=== PATIENT | male | born 1970 | race Caucasian/White ===

== ENCOUNTER 2019-12-06 15:53 | Inpatient (IN) | payer MEDICAID, SELFPAY ==
[2019-12-06 15:56] VITALS: BP 136/98; PULSE 110; RESP 16; TEMP 36.3; O2SAT 96; BMI 26.4
--- NOTE | 2019-12-06 16:15 | ED.DCSUM_ITS ---
- ER Visit Summary Date of Service: 12/06/19 Chief Complaint: Requesting detox for alcoholism History of Present Illness: The patient is a 49 M history of alcohol abuse states he drinks about 1/5 of vodka a day. He did drink this morning. Denies any hematemesis or melena. Denies any significant complaints. Last detox was in September in [place]. Physical Examination: Middle-aged male no acute distress vital signs stable afebrile. H EENT exam unremarkable. Neck nontender. Lungs clear to auscultation bilaterally. Heart regular rhythm rate about 110 no murmur. Chest wall nontender. Abdomen soft normal bowel sounds no peritoneal signs. Extremities moves all 4. Nontender. Normal range of motion. Back nontender. Neurologically is awake alert with no focal motor deficits. Test Results: CBC with differential CMP Emergency Department Course and Treatment: Screening labs. Hospitalist on page for admission for detox. Treatment Plan: MRI spoken the hospitalist about admission. Disposition: Admission for detox Impression: Hx of alcoholism requesting detox This note was generated with [employer] dictation software. It may contain incorrect words, spelling, and punctuation that were not noted in review of the chart prior to signing ED Disposition - Plan for ED Patient: Referrals: Zeeshan Larry MD [Primary Care Provider] -
[2019-12-06 16:23] VITALS: BMI 26.4
[2019-12-06 16:30] VITALS: BP 136/95; PULSE 83; RESP 16; TEMP 36.8; O2SAT 94
[2019-12-06 16:32] LABS: Absolute Lymphocyte Count 1.32 X10^3/uL (0.83-4.51); Absolute Neutrophil Count 2.7 X10^3/uL (2.0-7.7); Basophil# 0.06 X10^3/uL; Basophil% 1.3 % (0-1); Eosinophil# 0.04 X10^3/uL; Eosinophils% 0.8 % (0-5); Hematocrit 41.5 % (40-54); Hemoglobin 14.6 g/dL (13.0-16.5); Lymphocyte # 1.32 X10^3/ul (4.0); Lymphocyte % 27.9 % (19-41); Mean Corp Hgb Conc 35.2 g/dL (32-36); Mean Corpuscular Hgb 34.1 pg (27.0-32.0); Mean Platelet Vol. 9.6 fl (6.2-12.0); Monocyte# 0.62 X10^3/uL; Monocyte% 13.1 % (0-10); NRBC Flagged by Analyzer 0 % (0-5); Neutrophil # 2.67 X10^3/uL (2.7-7.7); Neutrophil % 56.5 % (47-70); Platelet Count 198 K/mm3 (150-450); RBC Distribution Width CV 12.6 % (11.6-14.6); RBC Distribution Width SD 44.7 fl (35.1-43.9); Red Blood Count 4.28 M/mm3 (4.6-6.2); White Blood Count 4.7 K/mm3 (4.4-11.0)
--- NOTE | 2019-12-06 16:35 | HP.PCM_ITS ---
<Brian Bush - Last Filed: 12/06/19 16:35> Problem List (1) Alcohol withdrawal Status: Acute (2) Hypertension Status: Chronic (3) Nicotine abuse Status: Chronic History of Present Illness Date of Admission: 12/06/19 Chief Complaint: alcohol withdrawal The patient is a 49 year old M with past medical history of nicotine abuse, hypertension, who presented to the emergency room with request for detox. His last drink was about 11 AM today. Patient has been drinking about 1/5 of full- strength vodka daily. He has been an alcoholic since he was a teenager. His last detox was in September of this year-at [facility] in [place], he only made it several days before he started drinking again. He was referred here by the [facility] today, and plans to follow-up with them at discharge. His withdrawal symptoms currently include nausea, upper extremity tremor, numbness and tingling of the toes, and headache. He denies a history of withdrawal seizure or hallucinations. He denies any use of benzodiazepines. He occasionally uses marijuana. He smokes less than 1 pack/day cigarettes. No other drug use. [] Past Medical History Past Medical History (Chronic Problems): Chronic Problems Nicotine abuse (Chronic) Hypertension (Chronic) Back pain (Chronic) Anxiety (Chronic) Dyslipidemia (Chronic) Tobacco use disorder (Chronic) Chest pain (Chronic) Allergies No Known Allergies Allergy (Verified 12/06/19 15:55) Home Medications: Ambulatory Orders Medication Instructions Recorded NK 12/06/19 Surgical History: no surgical history Psychiatric History: Anxiety Lives: With Family Smoking Status: Current every day smoker Tobacco Use: Cigarettes Alcohol: Heavy Drugs: Marijuana - *Family History Paternal History Items: Cancer - colon, Diabetes, Heart Disease - His father had q uadruple bypass surgery in his 50s, Hypertension Maternal History Items: - - denies stroke, cancer, heart disease Review of Systems Constitutional: Denies: Chills, Fever, Weight Change HEENT: Denies: Head Aches, Sinus Congestion, Sinus Drainage Cardiovascular: Denies: Chest Pain, Palpitations Respiratory: Denies: Cough, Shortness of breath at rest, Sputum production Gastrointestinal: Denies: Abdominal Pain, Nausea, Vomiting Genitourinary: Denies: Dysuria Musculoskeletal: Denies: Joint Pain, Joint Tenderness Skin: Denies: Rash, Wounds Neurological: Reports: Headaches, Numbness, Tingling, Tremor. Denies: Focal weakness Psychiatric: Denies: Anxiety, Depression, Homicidal Ideations, Suicidal Ideati ons Hematologic/ Lymphatic: Denies: Easy Bruising, Easy Bleeding VTE Information - Inpt Only VTE Present on Admission: No VTE Mechan Device Prophylaxis: None VTE Pharm Prophylaxis ordered?: No Reason prophylaxis not ordered:: Procedure Not Indicated Patient Problems: Active and Suspected Problems Alcohol withdrawal (Acute) - Physical Exam Vitals/I&O's: Vital Signs Temp Pulse Resp BP Pulse Ox 98.2 F 83 16 136/95 H 94 12/06/19 16:30 12/06/19 16:30 12/06/19 16:30 12/06/19 16:30 12/06/19 16:30 Oxygen Delivery Method Room Air Weight: 195 lb Body Mass Index (BMI) 26.4 General: Alert, Oriented x3, Cooperative HEENT: Atraumatic, PERRLA, EOMI, Normocephalic Neck: Supple, No JVD, Negative Carotid Bruits Lungs: Clear to auscultation, Normal air movement Cardiovascular: Regular rate, No murmurs Abdomen: Bowel Sounds Present, Soft, Non Tender Extremities: No edema, Capillary Refill Less than 3 Seconds Skin: No rashes, No breakdown Musculoskeletal: No Tenderness to Palpation of Joints or Extremities Neurological: Cranial nerves II-XII grossly intact Psych/Mental Status: Normal Affect, Appropriate, Alert and oriented to time, place, person, mood and affect Laboratory Results 12/06/19 16:05: WBC 4.7, RBC 4.28 L, Hgb 14.6, Hct 41.5, MCV 97.0 H, MCH 34.1 H, MCHC 35.2, RDW Std Deviation 44.7 H, RDW Coeff of Vivien 12.6, Plt Count 198, MPV 9.6, Immature Gran % (Auto) 0.400, Neut % (Auto) 56.5, Lymph % (Auto) 27.9, Schleicher % (Auto) 13.1 H, Eos % (Auto) 0.8, Baso % (Auto) 1.3 H, Absolute Neuts (auto) 2.7, Absolute Lymphs (auto) 1.32, Nucleated RBC % 0 12/06/19 16:05: Sodium Pending, Potassium Pending, Chloride Pending, Carbon Dioxide Pending, Anion Gap Pending, BUN Pending, Creatinine Pending, Est GFR (MDRD) Af Amer Pending, Est GFR (MDRD) Non-Af Pending, BUN/Creatinine Ratio Pending, Glucose Pending, Calcium Pending, Total Bilirubin Pending, AST Pending, ALT Pending, Alkaline Phosphatase Pending, Total Protein Pending, Albumin P ending Assessment/Plan All Active Problems Alcohol withdrawal (Acute) 1. Alcoholism with acute withdrawal-last drink 11 AM, drinks approximately 1/5 of full-strength vodka daily. Patient will be started on phenobarbital taper, CIWA protocol, folate and thiamine supplementation. He denies a history of withdrawal seizures. 2. Hypertension- not on home meds. 3. Nicotine abuse-patient will be placed on a nicotine patch DVT prophylaxis: Early ambulation DC planning: pt plans to return home with parents and follow up with [facility] as outpatient. This patient was seen by Brian Bush PA-C under the supervision of Doctor Felix. <Ashkan Washington - Last Filed: 12/06/19 16:46> Problem List (1) Alcohol withdrawal Status: Acute (2) Nicotine abuse Status: Chronic (3) Anxiety Status: Chronic (4) Back pain Status: Chronic (5) Chest pain Status: Chronic (6) Dyslipidemia Status: Chronic (7) Hypertension Status: Chronic (8) Tobacco use disorder Status: Chronic History of Present Illness The patient is a 49 year old M who has been drinking heavily for roughly 35 years. Recently his consumption has been about 750 mL's of vodka daily. Last drink was 11 AM today. Patient was in contact with the [facility] addiction program who advised the patient to come to the emergency room for admission for alcohol withdrawal. Since his last drink, patient's been having tremors in his upper extremities. Patient has tried quitting before and was able to do so for short period of time. He states that when he did quit previously, he did not go through delirium tremens. [] Past Medical History Allergies No Known Allergies Allergy (Verified 12/06/19 15:55) Surgical History: no surgical history Psychiatric History: Anxiety Lives: With Family Smoking Status: Current every day smoker Tobacco Use: Cigarettes Alcohol: Heavy Drugs: Marijuana - *Family History Paternal History Items: Cancer, Diabetes, Heart Disease, Hypertension Maternal History Items: - Review of Systems Constitutional: Denies: Chills, Fever, Weight Change HEENT: Denies: Head Aches, Sinus Congestion, Sinus Drainage Cardiovascular: Denies: Chest Pain, Palpitations Respiratory: Denies: Cough, Shortness of breath at rest, Sputum production Gastrointestinal: Denies: Abdominal Pain, Nausea, Vomiting Genitourinary: Denies: Dysuria Skin: Denies: Rash, Wounds Neurological: Reports: Headaches, Numbness, Tingling, Tremor. Denies: Focal we akness Psychiatric: Denies: Anxiety, Depression, Homicidal Ideations, Suicidal Ideations Hematologic/ Lymphatic: Denies: Easy Bruising, Easy Bleeding VTE Information - Inpt Only VTE Present on Admission: No VTE Mechan Device Prophylaxis: None VTE Pharm Prophylaxis ordered?: No Reason prophylaxis not ordered:: Procedure Not Indicated - Physical Exam Vitals/I&O's: Vital Signs Temp Pulse Resp BP Pulse Ox 36.8 C 86 16 136/92 H 94 12/06/19 16:37 12/06/19 16:37 12/06/19 16:37 12/06/19 16:37 12/06/19 16:37 Oxygen Delivery Method Room Air Weight: 88.451 kg Body Mass Index (BMI) 26.4 General: Alert, Oriented x3, Cooperative HEENT: Atraumatic, PERRLA, EOMI, Normocephalic Neck: Supple, No JVD, Negative Carotid Bruits Lungs: Clear to auscultation, Normal air movement Cardiovascular: Regular rate, No murmurs Abdomen: Bowel Sounds Present, Soft, Non Tender Extremities: No edema, No Calf Tenderness Skin: No rashes, No breakdown Musculoskeletal: No Tenderness to Palpation of Joints or Extremities Psych/Mental Status: Normal Affect, Appropriate Laboratory Results 12/06/19 16:05: WBC 4.7, RBC 4.28 L, Hgb 14.6, Hct 41.5, MCV 97.0 H, MCH 34.1 H, MCHC 35.2, RDW Std Deviation 44.7 H, RDW Coeff of Vivien 12.6, Plt Count 198, MPV 9.6, Immature Gran % (Auto) 0.400, Neut % (Auto) 56.5, Lymph % (Auto) 27.9, Schleicher % (Auto) 13.1 H, Eos % (Auto) 0.8, Baso % (Auto) 1.3 H, Absolute Neuts (auto) 2.7, Absolute Lymphs (auto) 1.32, Nucleated RBC % 0 12/06/19 16:05: Sodium Pending, Potassium Pending, Chloride Pending, Carbon Dioxide Pending, Anion Gap Pending, BUN Pending, Creatinine Pending, Est GFR (MDRD) Af Amer Pending, Est GFR (MDRD) Non-Af Pending, BUN/Creatinine Ratio Pending, Glucose Pending, Calcium Pending, Total Bilirubin Pending, AST Pending, ALT Pending, Alkaline Phosphatase Pending, Total Protein Pending, Albumin Pending Assessment/Plan Patient seen and examined independently. Data reviewed. I agree with the above note by the physician surgical services assistant. 1. Acute alcohol withdrawal: * Patient voluntarily seek treatment for alcohol withdrawal. * Last drink was at 11 AM today. * Patient will be on a phenobarbital taper plus thiamine folate. Additionally, patient will have other medications to help him with other somatic complaints that may be associated with his withdrawal. * Did advise the patient that given the large quantities of alcohol that he does consume that he is at high risk for going through delirium tremens. Informed him that if he does start to go through that that we would need to have a higher level of care, such as in the ICU, and also a change to his medications. 2. Tobacco abuse: Nicotine patch. 3. VTE prophylaxis: Low risk. 4. Advanced care planning: Discussed with patient. Patient wished to be full CODE STATUS. Inpatient E&M: 88548 Init Hosp L2
[2019-12-06 16:37] VITALS: BP 136/92; PULSE 86; RESP 16; TEMP 36.8; O2SAT 94
--- NOTE | 2019-12-06 16:41 | CM.ED ---
Social Work Consult: Substance Abuse Informant: Self-Referral Met with patient in room. Introduced self and social work nurse role. Patient agreeable to speak with this social work nurse. Patient states to be seeking medical management of withdrawal symptoms. Patient states substance of choice is Alcohol. Patient states to have last drank this morning. Patient reports a 5th of Vodka daily. Patient states to have last been through detox in September 2019. Patient denies any mental health history. Patient denies any suicidal thoughts/plans/intents. Patient states to feel safe at home and to have support in the community. Patient verbally agreeing to [facility] contract. Support provided. Telephone call to Antolin Bolanos. Antolin updated on patient admission. Narda Valle FIRST ASSIST, [place]
[2019-12-06 16:47] LABS: ALB/GLOB Ratio 0.8 RATIO (0.9-2.4); AST(SGOT) 319 U/L (15-37); Alanine Aminotransfer ALT/SGPT 129 U/L (16-61); Albumin, Serum 3.4 g/dL (3.2-5.0); Alkaline Phosphatase 127 U/L (45-117); Anion Gap 8 (5-15); BUN 14 mg/dL (7-18); BUN/Creat Ratio 16.9 RATIO (10-20); Calcium,Total 8.4 mg/dL (8.5-10.1); Chloride 105 mmol/L (98-107); Creatinine, Serum 0.83 mg/dL (0.70-1.30); EST Glomerular Filtration Rate 105 mL/min (>60); Est Glom Filt Rate - Afr Amer 127 mL/min (>60); Estimated Creatinine Clearance 116.87 ml/min; Globulin 4.1 g/dL (2.2-4.2); Glucose 129 mg/dL (74-106); Potassium 3.7 mmol/L (3.5-5.1); Protein, Total 7.5 g/dL (6.4-8.2); Sodium Level 141 mmol/L (136-145)
[2019-12-06 17:29] VITALS: BP 133/91; PULSE 82; RESP 16; TEMP 37; O2SAT 98
[2019-12-06 17:30] VITALS: BMI 26.2
--- NOTE | 2019-12-06 17:41 | NURSING ---
states any falling has been due to intoxication with alcohol
[2019-12-06] MEDS: Acetaminophen 325 MG Tablet 650 MG PO (18:02)
[2019-12-06] MEDS: Gabapentin 300 MG Capsule PO (18:02)
[2019-12-06] MEDS: Phenobarbital 32.4 MG Tablet 64.8 MG PO ×2 (18:02→22:18)
[2019-12-06] MEDS: Dicyclomine 10 MG Capsule 20 MG PO (18:02)
[2019-12-06] MEDS: Ondansetron 8 MG Tablet PO (20:41)
[2019-12-06] MEDS: hydrOXYzine PAM 25 MG Capsule 50 MG PO (20:41)
[2019-12-06 20:46] VITALS: BP 153/98; PULSE 99; RESP 18; TEMP 37.3; O2SAT 96
[2019-12-06] MEDS: traZODone 100 MG Tablet PO (22:18)
[2019-12-06] MEDS: 0.9% Saline Lock 10 ML Syringe IV (22:20)
[2019-12-07] MEDS: Phenobarbital 32.4 MG Tablet 64.8 MG PO ×6 (02:46→20:58)
[2019-12-07] MEDS: hydrOXYzine PAM 25 MG Capsule 50 MG PO (02:46)
[2019-12-07] MEDS: Dicyclomine 10 MG Capsule 20 MG PO (02:47)
[2019-12-07] MEDS: Acetaminophen 325 MG Tablet 650 MG PO ×2 (02:47→14:49)
[2019-12-07 02:55] VITALS: BP 133/81; PULSE 86; RESP 16; TEMP 36.8; O2SAT 95
[2019-12-07 09:32] VITALS: BP 145/89; PULSE 85; RESP 18; TEMP 36.7; O2SAT 98
[2019-12-07] MEDS: Folic Acid 1 MG Tablet PO (09:36)
[2019-12-07] MEDS: Thiamine Hydrochloride 100 MG Tablet PO (09:36)
--- NOTE | 2019-12-07 11:15 | ADDICTION ---
This verse writer met with patient in his room to complete ASAM, MSE and AUDIT assessments and to process discharge planning. Patient was alert and oriented x4 and presented with euthymic mood and broad affect. He participated appropriately. He reported that he plans to engage with [facility] after he is discharged from [facility]. He refused coordination by this verse writer but agreed to contact [facility] by 12/11/2019 to schedule appointment. He refused this verse writer's recommendation of Residential treatment. He refused coordination of transport. He appears appropriate for the 4.0 LOC aeb: ASAM Dimension1: severe This verse writer will send full, completed assessments and documentation to [facility].
--- NOTE | 2019-12-07 12:11 | PN_ITS ---
<Brian Bush - Last Filed: 12/07/19 12:11> Patient Problems: Active and Suspected Problems Alcohol withdrawal (Acute) Reason for Visit: alcohol withdrawal Subjective: ongoing tremor but improved. mild headache. parasthesias BL feet. Nausea improved. Vitals/I&O's: Vital Signs Temp Pulse Resp BP Pulse Ox 98.1 F 85 18 145/89 H 98 12/07/19 09:32 12/07/19 09:32 12/07/19 09:32 12/07/19 09:32 12/07/19 09:32 Oxygen Delivery Method Room Air Weight: 193 lb 1.999 oz Body Mass Index (BMI) 26.2 Intake and Output for Last 24 Hours 12/05/19 12/06/19 12/07/19 23:59 23:59 23:59 Intake Total 500 / 500 500 / 500 Balance 500 / 500 500 / 500 General: Alert, Oriented x3, Cooperative HEENT: Atraumatic, PERRLA, EOMI, Normocephalic Neck: Supple, No JVD, Negative Carotid Bruits Lungs: Clear to auscultation, Normal air movement Cardiovascular: Regular rate, No murmurs Abdomen: Bowel Sounds Present, Soft, Non Tender Extremities: No edema, Capillary Refill Less than 3 Seconds Skin: No rashes, No breakdown Musculoskeletal: No Tenderness to Palpation of Joints or Extremities Neurological: Cranial nerves II-XII grossly intact, - - tremor BL UE Psych/Mental Status: Normal Affect, Appropriate, Alert and oriented to time, place, person, mood and affect Laboratory Results 12/06/19 16:05: WBC 4.7, RBC 4.28 L, Hgb 14.6, Hct 41.5, MCV 97.0 H, MCH 34.1 H, MCHC 35.2, RDW Std Deviation 44.7 H, RDW Coeff of Vivien 12.6, Plt Count 198, MPV 9.6, Immature Gran % (Auto) 0.400, Neut % (Auto) 56.5, Lymph % (Auto) 27.9, [place] % (Auto) 13.1 H, Eos % (Auto) 0.8, Baso % (Auto) 1.3 H, Absolute Neuts (auto) 2.7, Absolute Lymphs (auto) 1.32, Nucleated RBC % 0 12/06/19 16:05: Sodium 141, Potassium 3.7, Chloride 105, Carbon Dioxide 28.0, Anion Gap 8, BUN 14, Creatinine 0.83, Estim Creat Clear Calc 116.87, Est GFR (MDRD) Af Amer 127, Est GFR (MDRD) Non-Af 105, BUN/Creatinine Ratio 16.9, Glucose 129 H, Calcium 8.4 L, Total Bilirubin 0.60, AST 319 H, ALT 129 H, Alkaline Phosphatase 127 H, Total Protein 7.5, Albumin 3.4, Globulin 4.1, Albumin/Globulin Ratio 0.8 L Current Medications Acetaminophen (Tylenol) 650 mg PO Q6H PRN PRN PRN Reason: Pain Score 1-10/Temp > 100.7 F Last Admin: 12/07/19 02:47 Dose: 650 mg Documented by: Dicyclomine HCl (Bentyl) 20 mg PO Q6H PRN PRN PRN Reason: abdominal discomfort Last Admin: 12/07/19 02:47 Dose: 20 mg Documented by: Folic Acid (Folic Acid) 1 mg PO DAILY@0800 [facility] Last Admin: 12/07/19 09:36 Dose: 1 mg Documented by: Gabapentin (Neurontin) 300 mg PO Q8H PRN PRN PRN Reason: moderate to severe anxiety Last Admin: 12/06/19 18:02 Dose: 300 mg Documented by: Hydroxyzine Pamoate (Vistaril Pamoate Capsule) 50 mg PO Q4H PRN PRN PRN Reason: mild anxiety Last Admin: 12/07/19 02:46 Dose: 50 mg Documented by: Loperamide HCl (Imodium) 2 mg PO Q4H PRN PRN PRN Reason: LOOSE STOOLS Ondansetron HCl (Zofran) 8 mg PO Q8H PRN PRN PRN Reason: NAUSEA Last Admin: 12/06/19 20:41 Dose: 8 mg Documented by: Phenobarbital (Phenobarbital) 97.2 mg PO Q4H [facility]; Taper Stop: 12/11/19 01:59 Last Admin: 12/07/19 09:35 Dose: 97.2 mg Documented by: Sodium Chloride () 10 - 40 ml IV UD PRN PRN Reason: SALINE FLUSH Last Admin: 12/06/19 22:20 Dose: 10 ml Documented by: Thiamine HCl (Vitamin B1) 100 mg PO DAILYCM [facility] Last Admin: 12/07/19 09:36 Dose: 100 mg Documented by: Trazodone HCl (Desyrel) 100 mg PO QHS PRN PRN Reason: INSOMNIA Last Admin: 12/06/19 22:18 Dose: 100 mg Documented by: STROKE Vital Signs/Narrative: Vital Signs Temp Pulse Resp BP Pulse Ox 12/07/19 09:32 98.1 F 85 18 145/89 H 98 Medical Necessity - Tobacco Use Smoking Status: Current every day smoker Tobacco Use: Cigarettes Assessment/Plan All Active Problems Alcohol withdrawal (Acute) 1. Alcoholism with acute withdrawal - symptoms improved. continued phenobarb taper. 2. Hypertension- not on home meds. will trend. 3. Nicotine abuse-nicotine patch DVT prophylaxis: Early ambulation DC planning: pt plans to return home with parents and follow up with [facility] as outpatient. This patient was seen by Brian Bsuh PA-C under the supervision of Doctor Josephine <Andrew Burton F - Last Filed: 12/07/19 13:51> Vitals/I&O's: Vital Signs Temp Pulse Resp BP Pulse Ox 98.1 F 85 18 145/89 H 98 12/07/19 09:32 12/07/19 09:32 12/07/19 09:32 12/07/19 09:32 12/07/19 09:32 Oxygen Delivery Method Room Air Weight: 193 lb 1.999 oz Body Mass Index (BMI) 26.2 Intake and Output for Last 24 Hours 12/05/19 12/06/19 12/07/19 23:59 23:59 23:59 Intake Total 500 / 500 500 / 500 Balance 500 / 500 500 / 500 Laboratory Results 12/06/19 16:05: WBC 4.7, RBC 4.28 L, Hgb 14.6, Hct 41.5, MCV 97.0 H, MCH 34.1 H, MCHC 35.2, RDW Std Deviation 44.7 H, RDW Coeff of Vivien 12.6, Plt Count 198, MPV 9.6, Immature Gran % (Auto) 0.400, Neut % (Auto) 56.5, Lymph % (Auto) 27.9, [place] % (Auto) 13.1 H, Eos % (Auto) 0.8, Baso % (Auto) 1.3 H, Absolute Neuts (auto) 2.7, Absolute Lymphs (auto) 1.32, Nucleated RBC % 0 12/06/19 16:05: Sodium 141, Potassium 3.7, Chloride 105, Carbon Dioxide 28.0, Anion Gap 8, BUN 14, Creatinine 0.83, Estim Creat Clear Calc 116.87, Est GFR (MDRD) Af Amer 127, Est GFR (MDRD) Non-Af 105, BUN/Creatinine Ratio 16.9, Glucose 129 H, Calcium 8.4 L, Total Bilirubin 0.60, AST 319 H, ALT 129 H, Al kaline Phosphatase 127 H, Total Protein 7.5, Albumin 3.4, Globulin 4.1, Albumin/Globulin Ratio 0.8 L Current Medications Acetaminophen (Tylenol) 650 mg PO Q6H PRN PRN PRN Reason: Pain Score 1-10/Temp > 100.7 F Last Admin: 12/07/19 02:47 Dose: 650 mg Documented by: Dicyclomine HCl (Bentyl) 20 mg PO Q6H PRN PRN PRN Reason: abdominal discomfort Last Admin: 12/07/19 02:47 Dose: 20 mg Documented by: Folic Acid (Folic Acid) 1 mg PO DAILY@0800 [facility] Last Admin: 12/07/19 09:36 Dose: 1 mg Documented by: Gabapentin (Neurontin) 300 mg PO Q8H PRN PRN PRN Reason: moderate to severe anxiety Last Admin: 12/06/19 18:02 Dose: 300 mg Documented by: Hydroxyzine Pamoate (Vistaril Pamoate Capsule) 50 mg PO Q4H PRN PRN PRN Reason: mild anxiety Last Admin: 12/07/19 02:46 Dose: 50 mg Documented by: Loperamide HCl (Imodium) 2 mg PO Q4H PRN PRN PRN Reason: LOOSE STOOLS Ondansetron HCl (Zofran) 8 mg PO Q8H PRN PRN PRN Reason: NAUSEA Last Admin: 12/06/19 20:41 Dose: 8 mg Documented by: Phenobarbital (Phenobarbital) 97.2 mg PO Q4H [facility]; Taper Stop: 12/11/19 01:59 Last Admin: 12/07/19 09:35 Dose: 97.2 mg Documented by: Sodium Chloride () 10 - 40 ml IV UD PRN PRN Reason: SALINE FLUSH Last Admin: 12/06/19 22:20 Dose: 10 ml Documented by: Thiamine HCl (Vitamin B1) 100 mg PO DAILYCM [facility] Last Admin: 12/07/19 09:36 Dose: 100 mg Documented by: Trazodone HCl (Desyrel) 100 mg PO QHS PRN PRN Reason: INSOMNIA Last Admin: 12/06/19 22:18 Dose: 100 mg Documented by: STROKE Vital Signs/Narrative: Vital Signs Temp Pulse Resp BP Pulse Ox 12/07/19 09:32 98.1 F 85 18 145/89 H 98 Addendum: Dr. Burton I personally examined the patient and reviewed the chart. I agree with the above. 49-year-old male with a history of alcohol abuse presents to the hospital for detox. He started drinking again a few days after leaving a detox center in [place]. He was requesting detox again. We will continue with alcohol withdrawal protocol, and have him follow-up with [facility] as an outpatient. Inpatient E&M: [id number] Subs Hosp L2
--- NOTE | 2019-12-07 14:28 | CHAPLAIN ---
Type of Pastoral Visit _x__ Initial Visit ___ Follow-up Visit ___ On-call Visit ___ General Patient Visit ___ Spiritual Assessment ___ Family Conference ___ Bereavement ___ Rapid Response ___ Code Blue ___ Other (describe below) Pastoral Care Referral From _x__ Patient ___ Family ___ Nurse ___ Physician ___ Relationship Banker ___ Digital Designer ___ Other (describe below) Sacrament/Intervention _x__ Active listening ___ Anointing ___ Faith ___ Bereavement ___ Communion _x__ Marisela exploration ___ _x__ Life review _x__ Prayer ___ Reconciliation ___ Sacrament of Sick _x__ Supportive presence ___ Wedding ___ Other (describe below) Pastoral Comments introduced self and role to patient; 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
[2019-12-07 14:39] VITALS: BP 133/92; PULSE 82; RESP 18; TEMP 37.3; O2SAT 96
[2019-12-07 14:41] VITALS: BP 133/92; PULSE 82; RESP 18; TEMP 37.3; O2SAT 97
[2019-12-07 17:46] VITALS: BP 135/87; PULSE 76; RESP 18; TEMP 37.3; O2SAT 98
[2019-12-07] MEDS: traZODone 100 MG Tablet PO (21:02)
[2019-12-07 23:48] VITALS: BP 141/91; PULSE 79; RESP 16; TEMP 37.1; O2SAT 96
[2019-12-08] MEDS: Phenobarbital 32.4 MG Tablet 64.8 MG PO ×2 (01:52→05:08)
[2019-12-08] MEDS: Acetaminophen 325 MG Tablet 650 MG PO (02:03)
[2019-12-08] MEDS: hydrOXYzine PAM 25 MG Capsule 50 MG PO (02:04)
[2019-12-08] MEDS: Gabapentin 300 MG Capsule PO (05:13)
[2019-12-08 05:48] VITALS: BP 133/88; PULSE 55; RESP 16; TEMP 36.9; O2SAT 98
--- NOTE | 2019-12-08 06:09 | NURSING ---
Pt up pacing in room, anxious with moderate tremors, having hallucinations and making inappropriate comments. Pt has been discussing leaving this AM. Most recently pulled IV out, won't stay in room.
--- NOTE | 2019-12-08 06:40 | NURSING ---
pt broke into tote with clothes, got dressed, anticipating leaving today while out roaming halls. Tote re-sealed and pt encouraged to stay.
[2019-12-08] MEDS: Folic Acid 1 MG Tablet PO (08:05)
[2019-12-08] MEDS: Thiamine Hydrochloride 100 MG Tablet PO (08:05)
--- NOTE | 2019-12-08 08:24 | NURSING ---
pt left emelya - Dr Coffman aware
--- NOTE | 2019-12-08 12:23 | PCM.DC.SUM ---
Discharge Date and Diagnosis Date of Admission: 12/06/19 Date of Discharge: 12/08/19 - Primary Discharge Diagnosis Acute Problems: acute alcohol withdrawal - Secondary Discharge Diagnosis Chronic Problems: Chronic Problems Nicotine abuse (Chronic) Hypertension (Chronic) Back pain (Chronic) Anxiety (Chronic) Dyslipidemia (Chronic) Tobacco use disorder (Chronic) Chest pain (Chronic) Hospital Course and Treatment Operations: None Procedures: None Summary of Care Provided: The patient is a 49 year old M with a past medical history of hypertension and nicotine abuse as well as dyslipidemia. He was admitted through the ED on 12/06/2019 with a complaint of alcohol withdrawal and requesting detox. His last drink was about 11 AM on the day of admission and he had been drinking about 1/5 of vodka daily. Patient had been drinking since he was a teenager and his last detox was in September 2019 at [facility]. However he was unsuccessful. On admission, he complained of nausea, tremors in the upper extremities, numbness and tingling of the toes and headache. He denied a history of withdrawal seizures or hallucinations. He was admitted to occasionally using marijuana. He was admitted and managed for acute alcohol withdrawal. He was started on alcohol withdrawal protocol with phenobarbital. He was also put on thiamine and folate as well as multivitamins. Patient tolerated 2 days of the alcohol withdrawal protocol. On 12/08/2019: Patient insisted on leaving AGAINST MEDICAL ADVICE. His CIWA score was 13 and patient was counseled that he would benefit from continuing the alcohol withdrawal protocol with phenobarbital. Patient however insisted on leaving and said he was okay with signing out AMA as he was being evicted and had some personal things to finish with his family this weekend. Patient therefore signed out AGAINST MEDICAL ADVICE on 12/08/2019. Patient was seen and examined prior to discharge. He felt well and had no complaints. He denied any tremors, hallucinations, dizziness, nausea vomiting. His nurse did report that patient had had some tactile disturbances earlier in the day but these were absent at time of review. O/E: Vital Signs Temp Pulse Resp BP Pulse Ox 98.5 F 55 L 16 133/88 H 98 12/08/19 05:48 12/08/19 05:48 12/08/19 05:48 12/08/19 05:48 12/08/19 05:48 [] General: Alert, Oriented x3, Cooperative HEENT: Atraumatic, PERRLA, EOMI, Normocephalic Neck: Supple, No JVD, Negative Carotid Bruits Lungs: Clear to auscultation, Normal air movement Cardiovascular: Regular rate, No murmurs Abdomen: Bowel Sounds Present, Soft, Non Tender Extremities: No edema, Capillary Refill Less than 3 Seconds Skin: No rashes, No breakdown Musculoskeletal: No Tenderness to Palpation of Joints or Extremities Neurological: Cranial nerves II-XII grossly intact, - - tremor BL UE Psych/Mental Status: Normal Affect, Appropriate, Alert and oriented to time, place, person, mood and affect Patient signed out AGAINST MEDICAL ADVICE on 12/08/2019. - Physical Exam Vitals/I&O's: Vital Signs Temp Pulse Resp BP Pulse Ox 98.5 F 55 L 16 133/88 H 98 12/08/19 05:48 12/08/19 05:48 12/08/19 05:48 12/08/19 05:48 12/08/19 05:48 Oxygen Delivery Method Room Air Weight: 193 lb 1.999 oz Body Mass Index (BMI) 26.2 Intake and Output for Last 24 Hours 12/06/19 12/07/19 12/08/19 23:59 23:59 23:59 Intake Total 500 / 500 1720 / 1720 600 / 600 Balance 500 / 500 1720 / 1720 600 / 600 Discharge Diet: Low fat/ Low Cholesterol Discharge Activity: Return to Normal Activity Weight Bearing Status: Weight bearing as tolerated Home Medications: Medications to take at Discharge NK 12/06/19 Primary Care Physician: Zeeshan Larry MD [Primary Care Provider] - Please follow up with your Primary Care Physician in: 1-2 weeks Disposition: Against Medical Advice Minutes spent on discharge:: 35 Patient Condition:: Stable Medical Necessity - Tobacco Use Smoking Status: Current every day smoker Tobacco Use: Cigarettes Meaningful Use Info Meaningful Use Diagnoses (Choose all that apply): None applicable Inpatient E&M: 64735 Disch Hosp
== END 2019-12-08 08:16 | disposition left against medical advice (07) | DRG 770 ==
LOC: ED 16:35 → MS3 16:59
PROVIDERS: Emergency Provider Emergency Medicine; PCP Family Medicine; Visit Provider Student in an Organized Health Care Education/Training Program
DX: F10.239 Alcohol dependence with withdrawal, unspecified (principal); I10 Essential (primary) hypertension; F17.210 Nicotine dependence, cigarettes, uncomplicated
CPT/HCPCS: 80053; 85025; 97802; 99284; 99406; A4216

== ENCOUNTER 2021-01-31 17:23 | Emergency (ER) | payer MEDICAID, SELFPAY ==
[2021-01-31 17:23] VITALS: BP 137/89; PULSE 114; RESP 18; TEMP 36.7; O2SAT 98; BMI 4100.8
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
[2021-01-31 17:57] VITALS: RESP 16
== END 2021-01-31 17:59 | disposition home or self-care (01) ==
PROVIDERS: Emergency Provider Emergency Medicine; PCP Family Medicine
DX: S80.11XA Contusion of right lower leg, initial encounter (principal); F17.200 Nicotine dependence, unspecified, uncomplicated; W22.8XXA Striking against or struck by other objects, initial encounter
CPT/HCPCS: 73590; 99282

== ENCOUNTER → 2022-11-20 | Outpatient (CLI) | payer MEDICAID, SELFPAY ==
--- NOTE | 2022-11-20 14:03 | RAD_ITS ---
INDICATION: right knee pain EXAMINATION/TECHNIQUE: X-RAY - RIGHT XR Knee 3 Views 3 VIEWS COMPARISON: None. FINDINGS: No significant tibiofemoral joint compartment narrowing. Minimal patellofemoral osteophytosis. No fracture. No effusion. Mild right lateral patellofemoral facet joint narrowing is appreciated. Slight spurring of tibial spines. No obvious osteochondral injury. RAD/Knee 3 Views IMPRESSION: Mild degenerative change. Electronically Signed: Mati Vizcarra MD at 23:44 EDT ,
--- NOTE | 2022-11-20 14:03 | RAD_ITS ---
INDICATION: left wirst pain EXAMINATION/TECHNIQUE: X-RAY - LEFT XR Wrist Min 3 Views 3 VIEWS COMPARISON: None. FINDINGS: SOFT TISSUES: No soft tissue swelling or gas. No radiopaque foreign body. BONES/JOINTS: No acute fracture or subluxation.. Normal alignment. Preservation of the joint space.. No sclerotic or destructive changes observed. RAD/Wrist min 3 Views IMPRESSION: Negative. Electronically Signed: Mati Vizcarra MD at 23:43 EDT ,
--- NOTE | 2022-11-20 14:04 | RAD_ITS ---
INDICATION: PAIN EXAMINATION/TECHNIQUE: X-RAY - XR Spine Lumbar Min 4 Views COMPARISON: None. FINDINGS: Spinal curvature convex rightward centered at L2/L3. No listhesis. No fracture. Mild loss of intervertebral height at L3/L4, L4/L5 and L5/S1. Facet hypertrophic changes are most prominent at L4/L5 and L5/S1. Anterior osteophyte formation at L3/L4 and L4/L5. Mild SI joint degenerative change. Bowel gas pattern is nonspecific.. Oblique views show no obvious spondylolysis. RAD/L/S Spine Min 4 Views IMPRESSION: Degenerative change as above. Facet arthropathy. No definitive spondylolysis or spondylolisthesis. Spinal curvature. Electronically Signed: Mati Vizcarra MD at 23:42 EDT ,
== END | disposition home or self-care (01) ==
LOC: RAD 13:50
PROVIDERS: PCP Family Medicine; Referring Provider Family Medicine; Visit Provider Family Medicine
DX: M25.561 Pain in right knee (principal)
CPT/HCPCS: 72110; 73110; 73562

== ENCOUNTER → 2022-12-07 | Outpatient (CLI) | payer MEDICAID, SELFPAY ==
--- NOTE | 2022-12-07 15:15 | RAD_ITS ---
EXAM: XR LEFT ANKLE COMPLETE, 3 OR MORE VIEWS CLINICAL INDICATION: left ankle injury TECHNIQUE: Frontal, lateral and oblique views of the left ankle. COMPARISON: No relevant prior studies available. FINDINGS: BONES/JOINTS: Unremarkable. No acute fracture. No subluxation. Normal alignment. Preservation of the joint space. No sclerotic or destructive changes observed. SOFT TISSUES: Unremarkable. No soft tissue swelling or gas. No radiopaque foreign body. RAD/Ankle min 3 Views IMPRESSION: Negative left ankle x-rays. Electronically Signed: Julio Healy MD at 4:57 EDT ,
== END | disposition home or self-care (01) ==
PROVIDERS: PCP Family Medicine; Referring Provider Family Medicine; Visit Provider Family Medicine
DX: M25.572 Pain in left ankle and joints of left foot (principal)
CPT/HCPCS: 73610